=== PATIENT | male | born 1945 | race Caucasian/White ===

== ENCOUNTER → 2016-04-29 | Outpatient (CLI) | payer MEDICARE, BC ==
[~2016-04-29] MED LIST: ALPRAZOLAM; ASPIRIN; FISH OIL 1,0001 CAP PO; GLUCOPHAGE XR500 MG; LIPITOR PO; TOPROL XL; VITAMIN B
--- NOTE | ~2016-04-29 | US10 ---
[id number] [facility]. [facility] [address]. [place], [place] [address] [id number] O MR#: [id number] Acc #: [id number] NAME: PINA BOSTON : 1945 SEX: M STUDY DATE/TIME: 04/29/2016 9:02 UNIT: [facility] ROOM: STUDY DESCRIPTION: US Aorta Complete Attending Physician: Ольга Jmaa Aprn Referring Physician: Ольга Jama Aprn Ordering Physician: Ольга Jama Aprn Primary Care Physician: Omar Saab M.D. MEDICAL IMAGING REPORT This report is preliminary unless electronic signature is present EXAM Abdominal aortic ultrasound, 04/29/16 HISTORY Aortic dissection. PROCEDURE Grayscale imaging and color Doppler flow imaging and Doppler waveform analysis. FINDINGS The aorta is normal in caliber. There is no aneurysm. There is normal Doppler waveform within the aortic lumen. The iliac vessels are normal in caliber and patent bilaterally. IMPRESSION Normal aortic ultrasound. No evidence of aneurysm. Normal caliber aorta. Dictated by... Bijan Rodriguez M.D. THIS IS AN ELECTRONICALLY VERIFIED REPORT Bijan Rodriguez M.D. at 05/01/2016 1:52 PM TEV/ea TD: 04/29/2016 21:26 JOB #: [id number] MEDICAL IMAGING REPORT Page 1 of 1 COPY
== END | disposition home or self-care (01) ==
LOC: CGUS 08:32
DX: I71.00 Dissection of unspecified site of aorta (principal)
CPT/HCPCS: 76770